=== PATIENT | female | born 1980 | race Caucasian/White ===

== ENCOUNTER 2016-08-19 05:09 | Observation (INO) | payer OTHER ==
[2016-08-19] MEDS ORDERED: WELLBUTRIN XL300 M3 PO (05:33)
[2016-08-19] MEDS ORDERED: PRENA1 CHEW TA1.4 M1 PO (05:33)
[2016-08-19 07:24] LABS: HCT-HEMATOCRIT 33.3 % (34.0-49.0); HGB-HEMOGLOBIN 11.3 gm/dl (12.0-15.5); MCH (MEAN CORPUSCULAR HGB) 29.7 pg (28.0-32.0); MCHC MEAN CORPUSCULAR HGB CONC 33.9 % (32.0-36.0); MCV (MEAN CELL VOLUME) 87.6 fl (82.0-96.0); MEAN PLATELET VOLUME 10.8 cmc (9.4-12.4); NEUTROPHIL-AUTOMATED 15.1 tho/cmm (1.6-8.0); PLATELET COUNT 229 tho/cmm (150-450); RED CELL DISTRIBUTION WIDTH 13.4 % (12.4-16.4); WHITE BLOOD COUNT 16.8 tho/cmm (4.0-10.0)
[2016-08-19 08:06] LABS: BAND % 13 % (0-20); BAND ABSOLUTE COUNT 2.2 tho/cmm (0-2.0); BASOPHIL % 1 % (0-2); BASOPHIL ABSOLUTE COUNT 0.2 tho/cmm (0.0-0.2)
== END 2016-08-20 10:39 ==
LOC: LDR 05:09
PROVIDERS: Obstetrics & Gynecology; ADMIT Obstetrics & Gynecology
DX: O60.03 Preterm labor without delivery, third trimester (principal); Z3A.32 32 weeks gestation of pregnancy; Z79.899 Other long term (current) drug therapy
CPT/HCPCS: G0378; J0702